=== PATIENT | female | born 1980 | race Caucasian/White ===

== ENCOUNTER 2017-08-13 09:30 | Outpatient (RCR) | payer OTHER ==
[~2017-08-13 09:30] MED LIST: IBU800 M1 PO; PRENATAL FORMU1 EAC3 PO; SYNTHROID0.1 MG/TAB
== END 2017-08-17 07:44 | disposition home or self-care (01) ==
LOC: WSPT 09:30
DX: M54.5 Low back pain (principal); M25.552 Pain in left hip